=== PATIENT | female | born 1970 | race Caucasian/White ===

== ENCOUNTER 2018-08-14 14:02 | Outpatient (CLI) | payer BC ==
--- NOTE | 2018-08-14 15:47 | RAD ---
PA AND LATERAL CHEST: History: Dyspnea on exertion. Fatigue. FINDINGS: The heart size is normal. The lungs are well expanded without focal areas of consolidation, pneumotho rax, mass or pleural effusions. No acute osseous abnormality is seen. IMPRESSION: Unremarkable exam. POS: OFF
--- NOTE | 2018-08-14 16:26 | RAD ---
CERVICAL SPINE FOUR VIEWS: 08/14/18 HISTORY: Cervicalgia. FINDINGS/IMPRESSION: No fracture, subluxation or bony destruction is seen. Minimal degenerative changes are present. No ch yandel in alignment is noted on flexion or extension. There is limitation of flexion. POS: OFF
== END 2018-08-14 14:03 | disposition home or self-care (01) ==
LOC: BICRAD 14:02
PROVIDERS: ATTEND Family Medicine
DX: M54.2 Cervicalgia (principal); R53.83 Other fatigue; E80.7 Disorder of bilirubin metabolism, unspecified; R10.9 Unspecified abdominal pain; M47.812 Spondylosis without myelopathy or radiculopathy, cervical region; M25.50 Pain in unspecified joint; M79.10 Myalgia, unspecified site; R06.09 Other forms of dyspnea; R01.1 Cardiac murmur, unspecified; R00.2 Palpitations; R76.0 Raised antibody titer; Z57.9 Occupational exposure to unspecified risk factor; Z82.41 Family history of sudden cardiac death
CPT/HCPCS: 36415; 71046; 72050; 80074; 80076; 82024; 82525; 82533; 82728; 83036; 83498; 83516; 83540; 83615; 85025; 85384; 86038; 86160; 86225; 86376; 87389

== ENCOUNTER 2018-10-09 09:29 | Outpatient (CLI) | payer BC ==
--- NOTE | 2018-10-09 11:34 | MRI ---
MRI CERVICAL SPINE: Date: 10-09-18 Provided Clinical History: Chronic neck pain, cervicalgia. FINDINGS: Cervical alignment appears normal. Vertebral body heights appear preserved. No focal concerning regio nal marrow signal abnormality is evident. The visualized posterior fossa, cervicomedullary junction a nd cervical spinal cord demonstrates normal signal and morphology. C2-3: There is no significant central canal or foraminal narrowing apparent. C3-4: There is no significant central canal or foraminal narrowing apparent. C4-5: There is no significant central canal or foraminal narrowing apparent. C5-6: No significant central canal or foraminal narrowing apparent. C6-7: There is no significant central canal or foraminal narrowing apparent. C7-T1: No significant central canal or foraminal narrowing apparent. IMPRESSION: Unremarkable MRI of the cervical spine. POS: [facility]
[2018-10-09] MEDS ORDERED: Gadobenate Dimeglumine 529 MG/1 ML (20ML VIAL) ONE (11:35)
--- NOTE | 2018-10-09 12:46 | MRI ---
MRI BRAIN WITH AND WITHOUT CONTRAST: HISTORY: Excessive fatigue. Low ACTH levels. COMPARISON: None. TECHNIQUE: A brain MRI is performed with and without intravenous Gadolinium administration, utilizing a pituitar y protocol. Multisequential, multiplanar imaging is performed. FINDINGS: The calvarium has a normal T1 marrow signal intensity. The midline brain parenchymal structures are unremarkable. Central arterial flow voids are maintained. Absent restricted diffusion. No significant FLAIR white matter hyperintensities. Cortical barrientos white matter differentiation is pr eserved. No evidence of hydrocephalus. No parenchymal mass, mass effect, or midline shift. No evidence of intracranial hemorrhage. No pathologic enhancement of the brain parenchyma. Adequate aeration of the sinuses and mastoid air cells. MRI of the pituitary gland shows appropriate signal intensity of the pituitary gland. The pituitary stalk is midline. The visualized optic nerves are unremarkable. On the dynamic post contrast images , there is no evidence of a macroadenoma or microadenoma. On the delayed post contrast images, there is no abnormal enhancement. IMPRESSION: 1. Unremarkable pre and post contrast brain MRI. 2. Unremarkable pre and post contrast pituitary gland MRI. POS: [facility]
== END 2018-10-09 09:30 | disposition home or self-care (01) ==
LOC: BICMRI 09:29
PROVIDERS: ATTEND Family Medicine
DX: M54.12 Radiculopathy, cervical region (principal); G62.9 Polyneuropathy, unspecified; D51.0 Vitamin B12 deficiency anemia due to intrinsic factor deficiency; R53.83 Other fatigue
CPT/HCPCS: 70553; 72141; A9577

== ENCOUNTER 2021-03-30 12:16 | Outpatient (CLI) | payer OTHER | END 2021-03-30 12:17 | disposition home or self-care (01) | LOC: BICMAMMO 12:16 | PROVIDERS: ATTEND Family Medicine | DX: Z12.31 Encounter for screening mammogram for malignant neoplasm of breast (principal); Z80.3 Family history of malignant neoplasm of breast | CPT/HCPCS: 77063; 77067 ==